=== PATIENT | female | born 1990 | race American Indian/Alaskan Native ===

== ENCOUNTER 2018-04-15 16:25 | Emergency (ER) | payer MEDICAID, OTHER ==
--- NOTE | 2018-04-15 16:39 | Emergency Department Report ---
Blank Doc - Documentation Documentation: This is a 27-year-old female that presents with sore throat. Denies any other URI symptoms. This initial assessment diagnostic orders/clinical plan/treatment(s) is/are subject to change based on patient's health status, clinical progression and re- assessment by fellow clinical providers in the ED. Further treatment and workup at subsequent clinical providers discretion. Patient/guardians urged not to elope from ED s their condition may be serious if not clinically assessed and managed. Initial orders include: 1-Patient sent to [facility] for further evaluation and treatment 2- strep swab
[2018-04-15 16:42] VITALS: BP 120/88
[2018-04-15] MEDS ORDERED: IBUPROFEN PO ONE (20:43)
[2018-04-15] MEDS ORDERED: DELTASONE PO ONE (20:43)
--- NOTE | 2018-04-15 20:47 | Emergency Department Report ---
ED ENT HPI - General Chief complaint: Sore Throat Stated complaint: SORE THROAT Time Seen by Provider: 04/15/18 16:38 Source: patient Mode of arrival: Ambulatory Limitations: No Limitations - History of Present Illness Initial comments: 27-year-old -[place] female presents to the emergency room for sore throat and pain for 3 days. Patient is taking nothing for pain. She reports increased pain with talking and swallowing. No past medical history currently takes no medications on a daily basis has no known drug allergies. Last menstrual period was 04/03/2017. complaint: sore throat - Related Data Previous Rx's Medication Instructions Recorded Last Taken Type Acetaminophen/Codeine [Tylenol #3] 1 tab PO Q6H PRN #21 tab 04/16/15 Unknown Rx Acyclovir [Zovirax Tab] 800 mg PO Q12H #14 tab 04/16/15 Unknown Rx Amoxicillin/K Clav Tab [Augmentin 1 tab PO Q12HR #20 tab 04/15/18 Unknown Rx 875 mg] Ibuprofen [Motrin 800 MG tab] 800 mg PO Q8HR PRN #30 tablet 04/15/18 Unknown Rx Allergies Allergy/AdvReac Type Severity Reaction Status Date / Time No Known Allergies Allergy Verified 04/16/15 11:19 ED Dental HPI - General Chief complaint: Sore Throat Stated complaint: SORE THROAT Time Seen by Provider: 04/15/18 16:38 Source: patient Mode of arrival: Ambulatory Limitations: No Limitations - Related Data Previous Rx's Medication Instructions Recorded Last Taken Type Acetaminophen/Codeine [Tylenol #3] 1 tab PO Q6H PRN #21 tab 04/16/15 Unknown Rx Acyclovir [Zovirax Tab] 800 mg PO Q12H #14 tab 04/16/15 Unknown Rx Amoxicillin/K Clav Tab [Augmentin 1 tab PO Q12HR #20 tab 04/15/18 Unknown Rx 875 mg] Ibuprofen [Motrin 800 MG tab] 800 mg PO Q8HR PRN #30 tablet 04/15/18 Unknown Rx Allergies Allergy/AdvReac Type Severity Reaction Status Date / Time No Known Allergies Allergy Verified 04/16/15 11:19 ED Review of Systems ROS: Stated complaint: SORE THROAT Other details as noted in HPI ED Past Medical Hx - Past Medical History Previous Medical History?: No Additional medical history: Unsure if she had chickenpox or not - Surgical History Past Surgical History?: Yes Additional Surgical History: LEFT ANKLE SURGERY - Social History Smoking Status: Never Smoker Substance Use Type: None - Medications Home Medications: Home Medications Medication Instructions Recorded Confirmed Last Taken Type Acetaminophen/Codeine [Tylenol #3] 1 tab PO Q6H PRN #21 tab 04/16/15 Unknown Rx Acyclovir [Zovirax Tab] 800 mg PO Q12H #14 tab 04/16/15 Unknown Rx Amoxicillin/K Clav Tab [Augmentin 1 tab PO Q12HR #20 tab 04/15/18 Unknown Rx 875 mg] Ibuprofen [Motrin 800 MG tab] 800 mg PO Q8HR PRN #30 tablet 04/15/18 Unknown Rx ED Physical Exam - General Limitations: No Limitations General appearance: alert, in no apparent distress - Head Head exam: Present: atraumatic, normocephalic - Eye Eye exam: Present: EOMI - ENT ENT exam: Present: mucous membranes moist - Expanded ENT Exam Expanded Throat exam: Positive: tonsillar erythema, tonsillomegaly. Negative: tonsillar exudate - Neck Neck exam: Present: tenderness, lymphadenopathy - Respiratory Respiratory exam: Present: normal lung sounds bilaterally. Absent: respiratory distress - Cardiovascular Cardiovascular Exam: Present: regular rate, normal rhythm. Absent: systolic murmur, diastolic murmur, rubs, gallop - GI/Abdominal GI/Abdominal exam: Present: soft, normal bowel sounds - Neurological Exam Neurological exam: Present: alert, oriented X3 - Psychiatric Psychiatric exam: Present: normal affect, normal mood - Skin Skin exam: Present: warm, dry, intact, normal color. Absent: rash ED Course Vital Signs 04/15/18 16:40 Temperature 98.6 F Pulse Rate 75 Respiratory 16 Rate Blood Pressure 120/88 [Left] O2 Sat by Pulse 99 Oximetry ED Medical Decision Making - Medical Decision Making Patient has been evaluated by this provider in fast track. Ibuprofen given for pain management Strep test positive We'll discharge patient home with Augmentin and ibuprofen she is to follow up w ith her primary care provider if her symptoms persist or gets worse. Patient was given prednisone and ibuprofen in [facility]. Critical care attestation.: If time is entered above; I have spent that time in minutes in the direct care of this critically ill patient, excluding procedure time. ED Disposition Clinical Impression: Strep pharyngitis Disposition: DC-01 TO HOME OR SELFCARE Is pt being admited?: No Does the pt Need Aspirin: No Condition: Stable Instructions: Strep Throat (ED) Additional Instructions: Complete antibiotics as prescribed. Take pain medication as needed increase her water intake while taking medication. If his symptoms persist or gets worse please follow-up with your primary care provider. Prescriptions: Amoxicillin/K Clav Tab [Augmentin 875 mg] 1 tab PO Q12HR #20 tab Ibuprofen [Motrin 800 MG tab] 800 mg PO Q8HR PRN #30 tablet PRN Reason: Pain , Severe (7-10) Referrals: EDD SHAH MD [Primary Care Provider] - 3-5 Days
== END 2018-04-15 20:51 | disposition home or self-care (01) ==
LOC: ED 16:25
DX: J02.0 Streptococcal pharyngitis (principal)
CPT/HCPCS: 87430; 99283; J7512

== ENCOUNTER 2021-08-07 19:19 | Emergency (ER) | payer MEDICAID ==
--- NOTE | 2021-08-07 20:40 | XRay Report ---
Right knee 3 views INDICATION: Injury FINDINGS: Alignment appears normal. No acute fracture dislocation IMPRESSION: No acute findings. Signer Name: Liang Boyle MD Signed: 08/07/2021 8:36 PM Workstation Name: [id number]
[2021-08-08] MEDS ORDERED: ACETAMINOPHEN 500 MG TAB PO ONE (01:42)
[2021-08-08] MEDS ORDERED: IBUPROFEN 800 MG TAB PO ONE (01:43)
[2021-08-08 02:08] VITALS: BP 116/71
--- NOTE | 2021-08-08 05:06 | Emergency Department Report ---
ED Lower Extremity HPI - General Chief Complaint: Extremity Injury, Lower Stated Complaint: RIGHT KNEE OUT OF PLACE Time Seen by Provider: 08/08/21 04:56 Source: patient Mode of arrival: Ambulatory Limitations: No Limitations - History of Present Illness Initial Comments: 31-year-old female was in the room walking around her bed which is a box fan at the base and turned a corner too short causing her knee to strike the corner of the bed hyperextending causing a popping cracking sensation followed by swelling and pain. Since that time she is not having pain with movement and standing and the feeling that her knee is out of place. Pain is dull and throbbing and worse with standing and ambulation as well as extension. Reports no prior injury MD Complaint: knee injury -: Gradual Injury: Knee: Right Type of Injury: blunt Place: home Severity: mild Improves With: nothing Worsens With: nothing Associated Symptoms: swelling - Related Data Previous Rx's Medication Instructions Recorded Last Taken Type Acetaminophen/Codeine [Tylenol #3] 1 tab PO Q6H PRN #21 tab 04/16/15 Unknown Rx Acyclovir [Zovirax Tab] 800 mg PO Q12H #14 tab 04/16/15 Unknown Rx Amoxicillin/K Clav Tab [Augmentin 1 tab PO Q12HR #20 tab 04/15/18 Unknown Rx 875 mg] Ibuprofen [Motrin 800 MG tab] 800 mg PO Q8HR PRN #30 tablet 04/15/18 Unknown Rx Ketorolac [Toradol] 10 mg PO Q6H PRN #14 08/08/21 Unknown Rx Allergies Allergy/AdvReac Type Severity Reaction Status Date / Time No Known Allergies Allergy Verified 04/16/15 11:19 ED Review of Systems ROS: Stated complaint: RIGHT KNEE OUT OF PLACE Other details as noted in HPI Comment: All other systems reviewed and negative ED Past Medical Hx - Past Medical History Additional medical history: Unsure if she had chickenpox or not - Surgical History Additional Surgical History: LEFT ANKLE SURGERY - Social History Smoking Status: Never Smoker Substance Use Type: None - Medications Home Medications: Home Medications Medication Instructions Recorded Confirmed Last Taken Type Acetaminophen/Codeine [Tylenol #3] 1 tab PO Q6H PRN #21 tab 04/16/15 Unknown Rx Acyclovir [Zovirax Tab] 800 mg PO Q12H #14 tab 02/26/16 Unknown Rx Amoxicillin/K Clav Tab [Augmentin 1 tab PO Q12HR #20 tab 04/15/18 Unknown Rx 875 mg] Ibuprofen [Motrin 800 MG tab] 800 mg PO Q8HR PRN #30 tablet 04/15/18 Unknown Rx Ketorolac [Toradol] 10 mg PO Q6H PRN #14 08/08/21 Unknown Rx ED Physical Exam - General Limitations: No Limitations General appearance: alert, in no apparent distress - Head Head exam: Present: atraumatic, normocephalic - Eye Eye exam: Present: normal appearance - ENT ENT exam: Present: mucous membranes moist - Neck Neck exam: Present: normal inspection - Respiratory Respiratory exam: Present: normal lung sounds bilaterally. Absent: respiratory distress - Cardiovascular Cardiovascular Exam: Present: regular rate, normal rhythm. Absent: systolic murmur, diastolic murmur, rubs, gallop - GI/Abdominal GI/Abdominal exam: Present: soft, normal bowel sounds - Extremities Exam Extremities exam: Present: normal inspection, tenderness, normal capillary refill - Expanded Lower Extremity Exam Right Hip exam: Present: normal inspection Upper Leg exam: Present: normal inspection Knee exam: Present: tenderness (Pain with Freddie's), swelling, posterior draw sign, pain/laxity with varus. Absent: pain/laxity with valgus Lower Leg exam: Present: normal inspection Ankle exam: Present: normal inspection Foot/Toe exam: Present: normal inspection Neuro vascular tendon exam: Present: no vascular compromise, significant pain with passive ROM of distal joint Gait: Positive: observed and normal - Back Exam Back exam: Present: normal inspection. Absent: CVA tenderness (R), CVA tenderness (L) - Neurological Exam Neurological exam: Present: alert, oriented X3, CN II-XII intact - Psychiatric Psychiatric exam: Present: normal affect, normal mood - Skin Skin exam: Present: warm, dry, intact, normal color. Absent: rash ED Course Vital Signs 08/07/21 08/07/21 08/08/21 19:52 19:55 02:07 Temperature 99.3 F 97.8 F Pulse Rate 84 77 Respiratory 16 15 Rate Blood Pressure 133/85 Blood Pressure 116/71 [Left] O2 Sat by Pulse 99 100 Oximetry Critical care attestation.: If time is entered above; I have spent that time in minutes in the direct care of this critically ill patient, excluding procedure time. ED Disposition Clinical Impression: Internal derangement of right knee Disposition: 01 HOME / SELF CARE / HOMELESS Is pt being admited?: No Does the pt Need Aspirin: No Condition: Stable Instructions: Acute Knee Pain, Adult, Knee Effusion, [id number], Meniscus Tear, How to Use a Knee Immobilizer Prescriptions: Ketorolac [Toradol] 10 mg PO Q6H PRN #14 PRN Reason: Pain Referrals: [facility] [Provider Group] - 3-5 Days [facility] [Provider Group] - 3-5 Days
== END 2021-08-08 05:25 | disposition home or self-care (01) ==
LOC: ED 19:19
DX: M23.90 Unspecified internal derangement of unspecified knee (principal); Z98.890 Other specified postprocedural states
CPT/HCPCS: 99283